=== PATIENT | female | born 1995 | race Caucasian/White ===

== ENCOUNTER 2018-09-03 12:15 | Emergency (ER) | payer OTHER ==
[~2018-09-03] VITALS: Ht 162.6 cm; Wt 47.6 kg
[2018-09-03 12:20] VITALS: Ht 162.6 cm; Wt 47.6 kg
[2018-09-03 14:46] VITALS: BP 113/66
== END 2018-09-03 14:46 | disposition home or self-care (01) ==
LOC: ED 12:15
DX: H53.9 Unspecified visual disturbance (principal); R51 Headache; R42 Dizziness and giddiness